=== PATIENT | female | born 1965 | race Caucasian/White ===

== ENCOUNTER 2019-10-03 20:14 | Emergency (ER) | payer OTHER ==
[~2019-10-03] VITALS: Ht 165.1 cm; Wt 67.1 kg
[2019-10-03] MEDS ORDERED: HYDROCODONE/APAP 10MG-325MG TAB PO ONE (21:15)
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
[2019-10-03] MEDS ORDERED: LIDOCAINE HCL 2% 2 ML AMP INJ ONE (23:30)
--- NOTE | 2019-10-03 23:36 | NUR ---
DR. TALLEY AT BEDSIDE FOR PT EVAL AND DISCUSSING PLAN OF CARE IN REGARDS TO XRAY RESULTS.
[2019-10-03] MEDS ORDERED: LIDOCAINE HCL 2% 100 MG/5 ML IV ONE ×2 (23:39→23:42)
[2019-10-03] MEDS ORDERED: LIDOCAINE HCL 1% LOCAL INJ 20 ML VIAL ONE (23:46)
[2019-10-04] MEDS ORDERED: FENTANYL CITRATE/PF 100MCG/2 ML INJ IV ONE
--- NOTE | 2019-10-04 | NUR ---
DR. TALLEY AT BEDSIDE FOR HEMATOMA BLOCK. ER MD ADMINISTERED LIDOCAINE TO SITE AND EDUCATED PT ER MD WOULD WAIT 15 MINUTES AFTER ADMINISTRATION OF MEDICATION TO PERFORM REDUCTION. NAD NOTED AT THIS TIME.
[2019-10-04] MEDS ORDERED: ONDANSETRON HCL INJ 2MG/ML 2ML 2 MG/ML VIAL ONE (00:02)
[2019-10-04] MEDS ORDERED: ONDANSETRON HCL INJ 2MG/ML 2ML 2 MG/ML VIAL IV STA (00:12)
[2019-10-04] MEDS ORDERED: LIDOCAINE HCL 1% LOCAL INJ 20 ML VIAL INJ ONE (00:15)
--- NOTE | 2019-10-04 00:15 | NUR ---
PT STATES PAIN IS GETTING WORSE AT THIS TIME. DR. TALLEY MADE THE DECISION TO NOT PERFORM HEMATOMA BLOCK AND TO PREPARE FOR A CONSCIOUS SEDATION.
[2019-10-04] MEDS ORDERED: PROPOFOL IV EMULSION 10 MG/ML 20 ML VIAL IV ONE (00:30)
[2019-10-04] MEDS ORDERED: KETAMINE HCL INJ 50 MG/ML 10 ML VIAL IV ONE (00:30)
--- NOTE | 2019-10-04 00:40 | NUR ---
Informed consent obtained at this time. Time out done at this time. RT at bedside with ETCO2. Ambu bag and suction ready if needed. Procedure explained in detail by Dr. Isaac to pateint. VS q3m.
[2019-10-04 00:48] VITALS: BP 129/86
--- NOTE | 2019-10-04 00:50 | NUR ---
Strong right radial pulse noted post reduction.
--- NOTE | 2019-10-04 00:58 | NUR ---
Conscious sedation complete at this time. Patient tolerated procedure well with no distress. RR even and unlabored. ETCO2 remains WNL. Will continue to monitor patient.
--- NOTE | 2019-10-04 01:00 | NUR ---
ER MD ADMINISTERED 50MG KETAMINE AND 80MG PROPOFOL TO PT. 450MG KETAMINE AND 20MG PROPOFOL WASTED AND VERIFIED WITH THIS RNPaola RN AND ER .
--- NOTE | 2019-10-04 01:33 | Diagnostic Imaging Report ---
Exam: Right wrist 3 views History: Post reduction Comparison: 10/03/2019 Findings: See impression Impression: Interval splinting of the right wrist with interval improvement in dorsal angulation of the previously described comminuted intra-articular distal radial fracture. Ulnar styloid avulsion is again noted also with improved alignment. Signed by: Dr. Gavin Berrios M.D. on 10/04/2019 1:29 AM
--- NOTE | 2019-10-04 02:16 | NUR ---
PT A&OX3 AT THIS TIME. RESP EVEN/UNLABORED. NAD NOTED AT THIS TIME. CAP REFILL < 3 SEC. PT ABLE TO TOLERATE ORAL INTAKE. PT TOLERATING WELL.
[2019-10-04] MEDS ORDERED: ONDANSETRON HCL 4 MG ORAL DISINTEGRATING TAB ONE (03:00)
[2019-10-04] MEDS ORDERED: ONDANSETRON HCL 4 MG ORAL DISINTEGRATING TAB PO ONE (03:15)
[2019-10-08] MEDS ORDERED: LOSARTAN POTASS25 MG PO (13:57)
[2019-10-08] MEDS ORDERED: LASIX20 MG PO (13:57)
[2019-10-08] MEDS ORDERED: ADDERALL 20 MG20 MG PO (13:57)
== END 2019-10-04 02:57 | disposition home or self-care (01) ==
LOC: ER 20:14
DX: S52.531A Colles' fracture of right radius, initial encounter for closed fracture (principal); M25.561 Pain in right knee; V86.65XA Passenger of 3- or 4- wheeled all-terrain vehicle (ATV) injured in nontraffic accident, initial encounter; Y92.830 Public park as the place of occurrence of the external cause; I10 Essential (primary) hypertension; F41.9 Anxiety disorder, unspecified
CPT/HCPCS: 25605; 73110 ×2; 73130; 73562; 73590; 99285; J2001 ×2; J2405; J2704; J3010; Q0162

== ENCOUNTER → 2019-10-11 | Day surgery (SDC) | payer OTHER ==
[~2019-10-11] MED LIST: ACETAMINOPHEN 1000 MG/100 ML IV ONE; ADDERALL 20 MG20 MG PO; BUPIVACAINE HCL 0.5% INJ 30 ML VIAL INJ ONE; CEFAZOLIN SOD 1 GM/NS 50ML 100 ML IV ONE; DEXAMETHASONE SOD PHOS INJ 4 MG/ML VIAL ONE; FENTANYL CITRATE/PF 100MCG/2 ML INJ ONE; HYDROCODONE/APAP 7.5MG-325MG 1 EA TAB ONE; IBUPROFEN 800MG/ 200ML 200 ML IV ONE; LASIX20 MG PO; LIDOCAINE HCL 2% LOCAL INJ 5 ML SDV VIAL INJ ONE; LOSARTAN POTASS25 MG PO; MIDAZOLAM HCL 2 MG/2 ML VIAL ONE; MORPHINE SULFATE INJ 10 MG/ML ONE; ONDANSETRON HCL INJ 2MG/ML 2ML 2 MG/ML VIAL ONE; PROPOFOL IV EMULSION 10 MG/ML 20 ML VIAL ONE; SEVOFLURANE INHAL SOLN 250 ML PEN BTL ONE
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
[2019-10-11 08:02] LABS: ANION GAP 10.9 mmol/L (8-16); BLOOD UREA NITROGEN 17 mg/dL (7-26); BUN/CREATININE RATIO 20 (6-25); CALCIUM 9.7 mg/dL (8.4-10.2); CARBON DIOXIDE 29 mmol/L (22-29); CHLORIDE 104 mmol/L (98-107); CREATININE, SERUM 0.83 mg/dL (0.57-1.11); EST GLOMERULAR FILTRATION RATE > 60 ML/MIN (60-); GLUCOSE 87 mg/dL (74-118); POTASSIUM 3.9 mmol/L (3.5-5.1); SODIUM 140 mmol/L (136-145)
[2019-10-11 11:35] VITALS: BP 129/86
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
== END | disposition home or self-care (01) ==
LOC: OR 06:56
PROVIDERS: ATTEND Orthopaedic Surgery
DX: S52.571A Other intraarticular fracture of lower end of right radius, initial encounter for closed fracture (principal); I10 Essential (primary) hypertension; F32.9 Major depressive disorder, single episode, unspecified; F41.9 Anxiety disorder, unspecified; W19.XXXA Unspecified fall, initial encounter; Z88.2 Allergy status to sulfonamides; Z88.8 Allergy status to other drugs, medicaments and biological substances; Z01.810 Encounter for preprocedural cardiovascular examination; Z87.891 Personal history of nicotine dependence
CPT/HCPCS: 25609; 36415; 80048; 93005; C1713 ×8; J0131; J0690; J1100; J2001; J2250; J2270; J2405; J2704; J3010